=== PATIENT | male | born 1980 | race Caucasian/White ===

== ENCOUNTER 2020-10-30 14:58 | Outpatient (CLI) | payer BC | END 2020-10-30 14:59 | disposition home or self-care (01) | LOC: BICCT 14:58 | PROVIDERS: ATTEND Otolaryngology Plastic Surgery within the Head & Neck | DX: R22.1 Localized swelling, mass and lump, neck (principal); K11.8 Other diseases of salivary glands | CPT/HCPCS: 70491 ==